=== PATIENT | male | born 1940 | race Two or more races ===

== ENCOUNTER 2023-05-11 11:20 | Inpatient (IN) | payer OTHER ==
[~2023-05-11] VITALS: Ht 175.3 cm; Wt 65.8 kg
--- NOTE | 2023-05-11 12:57 | NUR ---
SE RECIBE PTE ALERTA Y ORIENTADO X3 MARTINE[address] DR[address] FRIAS TOM GASTRO MARTINEZ MEDICO TRABAJA EN [facility] EN [place], DR REFIERE VENIR A PAYTON MAS CERCANA. PTE REFIERE QUE SE DAVID VIERNES Y LO TRAEN HOY Y FAMILIAR REFIERE QUE NO PARA DE VOMITAR, SE HACE PREGUNTA SI PERDIO CONOCIMIENTO REFIERE QIE SI. SE REALIZA EKG Y SE PRESENTA A HARMONY. OCASIO. SE LENORA VITALES Y SE ALEXIA EN OBSERVACION.
--- NOTE | 2023-05-11 15:24 | NUR ---
PTE EVALUADO POR . OCASIO. SE ORIENTA PTE Y FAMILIAR SOBRE TX A SEGUIR, EL CUAL REFIEREN ENTENDER. SE COLECTAN MUESTRAS Y SE CANALIZA PTE UTILIZANDO MEDIDAS ASEPTICAS. SE ADM. MEDICAMENTOS RUT ORDEN MEDICA. PEND CT ABD/PEL CON CONTRASTE PO Y CT DE HEAD.
== END 2023-05-21 15:33 | disposition home or self-care (01) | DRG 375 ==
LOC: ER 11:20 → MEDJ 22:51
PROVIDERS: ADMIT Internal Medicine; ATTEND Internal Medicine
PROC: BB24Y0Z Computerized Tomography (CT Scan) of Bilateral Lungs using Other Contrast, Unenhanced and Enhanced (ICD-10-PCS; principal; 2023-05-11)
PROC: BW28ZZZ Computerized Tomography (CT Scan) of Head (ICD-10-PCS; 2023-05-11)
PROC: 0DB78ZX Excision of Stomach, Pylorus, Via Natural or Artificial Opening Endoscopic, Diagnostic (ICD-10-PCS; 2023-05-13)
PROC: 0DB58ZX Excision of Esophagus, Via Natural or Artificial Opening Endoscopic, Diagnostic (ICD-10-PCS; 2023-05-13)
PROC: BB24Y0Z Computerized Tomography (CT Scan) of Bilateral Lungs using Other Contrast, Unenhanced and Enhanced (ICD-10-PCS; 2023-05-14)
PROC: 0DH63UZ Insertion of Feeding Device into Stomach, Percutaneous Approach (ICD-10-PCS; 2023-05-18)
DX: C16.0 Malignant neoplasm of cardia (principal); N17.8 Other acute kidney failure; I10 Essential (primary) hypertension; E11.9 Type 2 diabetes mellitus without complications; Z79.4 Long term (current) use of insulin; R13.19 Other dysphagia; R63.4 Abnormal weight loss; Z68.21 Body mass index [BMI] 21.0-21.9, adult

== ENCOUNTER → 2023-05-28 | Outpatient (CLI) | payer OTHER | END | disposition home or self-care (01) | LOC: NUCLEAR 07:00 | PROVIDERS: ATTEND Internal Medicine Hematology & Oncology | DX: C16.0 Malignant neoplasm of cardia (principal); C15.5 Malignant neoplasm of lower third of esophagus | CPT/HCPCS: 78815; A9552 ==

== ENCOUNTER 2023-08-12 13:24 | Inpatient (IN) | payer OTHER ==
[~2023-08-12] VITALS: Ht 175.3 cm; Wt 62.1 kg
[2023-08-12] MEDS ORDERED: ACID REDUCER20 M1 (14:21)
[2023-08-12] MEDS ORDERED: PEPCID AC10 MG PO (14:21)
[2023-08-12] MEDS ORDERED: GRALISE600 MG (14:21)
[2023-08-12] MEDS ORDERED: RESTORIL7.5 MG PO (14:22)
[2023-08-12] MEDS ORDERED: JANUMET 50-1,01 EACH PO (14:22)
[2023-08-12] MEDS ORDERED: GLUMETZA500 MG PO (14:22)
[2023-08-12] MEDS ORDERED: GRALISE600 MG PO (14:22)
[2023-08-12 16:27] LABS: HEMATOCRIT 40.8 % (39.0-48.0); MEAN CELL VOLUME 91.9 fL (80.0-100.00); MEAN CORPUSCULAR HEMOGLOBIN 31.5 pg (27.00-32.0); MEAN CORPUSCULAR HGB CONC 34.3 g/dl (32.0-36.0); PLATELET COUNT 319 K/uL (150-450); RED BLOOD COUNT 4.44 M/uL (4.00-6.00); RED CELL DISTRIBUTION WIDTH 15.4 % (11.5-14.5)
[2023-08-12 16:37] LABS: URINE APPEARANCE Clear; URINE BILIRRUBIN Negative (NEGATIVE); URINE BLOOD Negative; URINE COLOR Dark Yellow; URINE GLUCOSE Negative (NEGATIVE); URINE LEUKOCYTE Negative; URINE NITRATE Negative; URINE UROBILINOGEN 0.2 E.U./dl
[2023-08-12 16:41] LABS: URINE BACTERIA 14.5 uL (0.0-1933); URINE EPITHELIAL CELLS 3.4 uL (0.0-38.8); URINE RBC 19.9 uL (0.0-20.8); URINE WBC 2.8 uL (0.0-23.2)
[2023-08-12 16:43] LABS: URINE PROTEIN 100 (NEGATIVE)
[2023-08-12 16:49] LABS: INR 1.03; PARTIAL THROMBOPLASTIN TIME 26.3 SECONDS (22.0-34.0); PROTHROMBIN TIME 10.8 SECONDS (9.0-11.5)
[2023-08-12 16:51] LABS: CALCIUM 9.2 mg/dL (8.5-10.1); CREATININE SERUM 0.88 mg/dL (0.70-1.30); GFR 82.91; POTASSIUM 4.76 mEq/L (3.5-5.1)
[2023-08-14 06:49] LABS: HEMATOCRIT 40.3 % (39.0-48.0); HEMOGLOBIN 13.7 g/dL (13-16.00); MEAN CORPUSCULAR HEMOGLOBIN 31.2 pg (27.00-32.0); MEAN CORPUSCULAR HGB CONC 33.9 g/dl (32.0-36.0); PLATELET COUNT 295 K/uL (150-450); RED BLOOD COUNT 4.38 M/uL (4.00-6.00); RED CELL DISTRIBUTION WIDTH 15.4 % (11.5-14.5)
[2023-08-14 06:53] LABS: ALBUMIN 2.8 gm/dL (3.4-5.0); BILIRUBIN TOTAL 0.68 mg/dL (0.3-1.2); CALCIUM 8.6 mg/dL (8.5-10.1); CREATININE SERUM 0.76 mg/dL (0.70-1.30); GFR 98.19; GLOBULINA 3.8 G/DL (2.4-3.5); MAGNESIUM 1.9 mg/dL (1.8-2.4); PHOSPHOROUS 2.6 mg/dL (2.5-4.9); POTASSIUM 3.52 mEq/L (3.5-5.1); TOTAL PROTEIN 6.6 gm/dL (6.4-8.2)
[2023-08-18 07:19] LABS: HEMATOCRIT 36.2 % (39.0-48.0); HEMOGLOBIN 11.8 g/dL (13-16.00); MEAN CELL VOLUME 93.2 fL (80.0-100.00); MEAN CORPUSCULAR HEMOGLOBIN 30.5 pg (27.00-32.0); MEAN CORPUSCULAR HGB CONC 32.7 g/dl (32.0-36.0); PLATELET COUNT 277 K/uL (150-450); RED BLOOD COUNT 3.88 M/uL (4.00-6.00); RED CELL DISTRIBUTION WIDTH 15.9 % (11.5-14.5)
[2023-08-18 08:14] LABS: ALBUMIN 2.1 gm/dL (3.4-5.0); BILIRUBIN TOTAL 0.51 mg/dL (0.3-1.2); CALCIUM 8.2 mg/dL (8.5-10.1); CREATININE SERUM 0.76 mg/dL (0.70-1.30); GFR 98.19; GLOBULINA 3.3 G/DL (2.4-3.5); MAGNESIUM 1.9 mg/dL (1.8-2.4); PHOSPHOROUS 2.4 mg/dL (2.5-4.9); POTASSIUM 3.84 mEq/L (3.5-5.1); TOTAL PROTEIN 5.4 gm/dL (6.4-8.2)
== END 2023-08-18 17:21 | disposition home or self-care (01) | DRG 327 ==
LOC: ER 13:24 → MEDJ 21:42
PROVIDERS: Nurse Practitioner Family; ADMIT Internal Medicine; ATTEND Internal Medicine
PROC: 0DJ08ZZ Inspection of Upper Intestinal Tract, Via Natural or Artificial Opening Endoscopic (ICD-10-PCS; 2023-08-14)
PROC: 0DP63UZ Removal of Feeding Device from Stomach, Percutaneous Approach (ICD-10-PCS; principal; 2023-08-17)
PROC: 0DH63UZ Insertion of Feeding Device into Stomach, Percutaneous Approach (ICD-10-PCS; 2023-08-17)
PROC: 3E0G76Z Introduction of Nutritional Substance into Upper GI, Via Natural or Artificial Opening (ICD-10-PCS; 2023-08-17)
DX: K94.23 Gastrostomy malfunction (principal); C16.0 Malignant neoplasm of cardia; N17.9 Acute kidney failure, unspecified; K22.0 Achalasia of cardia; D49.0 Neoplasm of unspecified behavior of digestive system